=== PATIENT | female | born 1985 | race Caucasian/White ===

== ENCOUNTER 2020-08-30 19:47 | Inpatient (IN) ==
[2020-08-30] MEDS ORDERED: RINGER'S SOLUTION,LACTATED 1,000 ML IV PRN (20:37)
--- NOTE | 2020-08-30 20:37 | HP ---
Chief Complaint - Chief Complaint Date of Service: 08/30/20 Time of Service: 20:30 Chief Complaint: SROM, contractions History of Present Illness: 34 year old at 38w 1d who presents to labor and delivery with rupture of membranes, and in labor. She reports contractions. She denies vb or lof. Fetus is active. Medical History (Last Reviewed 08/30/20 @ 20:32 by Rosalva Grace MD) Anxiety Onset Date: Unknown Asthma Depression Onset Date: Unknown Endometriosis Onset Date: Unknown Surgical History: Surgical History (Last Reviewed 08/30/20 @ 20:32 by Rosalva Grace MD) H/O LEEP Onset Date: ~2004 H/O repair of rotator cuff Onset Date: Unknown History of cryosurgery Onset Date: ~2007 Previous section Family History: Family History (Last Reviewed 08/30/20 @ 20:32 by Rosalva Grace MD) Father Alive and well Mother Diabetes DMII COPD (chronic obstructive pulmonary disease) Hypothyroidism Other No pertinent family history Social History: (Last Updated 08/27/20 @ 15:15 by Rosalva Grace MD) Social History: Marital status: Single household members: children current occupational status: unemployed Highest level of school completed/degree received: some college, no degree Service: No Tobacco: Smoking Status: Current every day smoker tobacco type: cigarettes Smoking cigarettes per day: 3 Alcohol: alcohol intake: former details: none since +UPT Substance Use: substance use type: marijuana details: stopped with +UPT Dietary Habits: caffeine: No Review Of Systems (GEN) - Review of Systems Generalized/Overall Review: Present: No Symptoms Reported EENTM: Present: No Symptoms Reported Misc: All systems neg except as marked Immunizations: IMMUNIZATION HX Immunizations Up to Date Yes History of Influenza Vaccine No Hx Pneumococcal Vaccination No Allergies/Adverse Reactions: Allergies Allergy/AdvReac Type Severity Reaction Status Date / Time No Known Allergies Allergy Verified 08/30/20 20:11 Home Medications: HOME MEDICATIONS prenat.vits,christophe,bmf-[id number] 1 tab PO DAILY 02/21/20 [Last Taken Unknown] cyclobenzaprine 10 mg tablet 10 mg PO Q8H PRN #30 tab 07/30/20 [Last Taken Unknown] breast pump See Rx Instructions .ROUTE .MEDSUPPLY #1 ea 08/13/20 [Last Taken Unknown] Ferrous Sulfate [Iron] 325 mg PO DAILY 08/21/20 [Last Taken Unknown] Exam - Exam Vital Signs: Vital Signs - Last Taken Temp 37.0 C 08/30/20 20:17 Pulse 80 08/30/20 20:17 Resp 20 08/30/20 20:17 BP 113/57 08/30/20 20:17 Pulse Ox 99 08/30/20 20:17 Constitutional: Present: Alert, Oriented x3, Cooperative, No distress ENT Exam: Present: hearing grossly normal Eye Exam: bilateral eye: normal inspection Neck: Present: normal inspection Breasts: Present: Exam deferred Respiratory: Present: lungs clear, normal breath sounds Cardiovascular/Chest: Present: regular rate, rhythm Abdomen: Present: nontender, nondistended, no rebound tenderness /Rectal: Present: Exam deferred Extremity: Present: non-tender, no calf tenderness Skin Exam: Present: normal color, warm/dry, no cyanosis Neurologic: Present: alert, normal mood/affect, oriented x 3 Appearance: Present: appropriate appearance, appropriate insight, neat, no memory impairment Eye contact: Present: cooperative, good eye contact, normal speech Thoughts: Present: normal thought pattern Assessment/Plan - Narrative Narrative: Proceed with delivery due to ruptured membranes and in labor at 38 weeks gestation - Assessment/Plan (1) Premature rupture of membranes Problem: Acute Qualifiers: PROM onset of labor timing: onset of labor within 24 hours of rupture PROM gestational age: full term Qualified Code(s): O42.02 - Full-term premature rupture of membranes, onset of labor within 24 hours of rupture (2) 38 weeks gestation of Problem: Acute (3) Request for sterilization Problem: Acute (4) History of delivery Problem: Acute (5) Rh(D) positive Problem: Acute (6) AMA (advanced maternal age) multigravida 35+ Problem: Acute Qualifiers: Trimester: third trimester Qualified Code(s): O09.523 - Supervision of elderly multigravida, third trimester (7) Normal Pap smear Problem: Acute (8) History of marijuana use Problem: Acute
[2020-08-30] MEDS ORDERED: fentaNYL CITRATE/PF 50 MCG/ML AMPUL ONE (20:56)
[2020-08-30] MEDS ORDERED: MIDAZOLAM HCL/PF 5 MG/ML VIAL ONE (20:56)
[2020-08-30] MEDS ORDERED: ONDANSETRON HCL/PF 2 MG/ML VIAL ONE (20:57)
[2020-08-30] MEDS ORDERED: BUPIVACAINE HCL/EPINEPHRINE 50 ML VIAL ONE (20:57)
[2020-08-30] MEDS ORDERED: NALOXONE HCL 0.4 MG/ML VIAL IV PRN (21:09)
[2020-08-30] MEDS ORDERED: PROCHLORPERAZINE EDISYLATE 5 MG/ML VIAL IV PRN (21:09)
[2020-08-30] MEDS ORDERED: diphenhydrAMINE HCL 50 MG/ML VIAL IV PRN (21:09)
--- NOTE | 2020-08-30 21:28 | ANES ---
Anesthesia Pre Procedure Eval Vitals/Labs: Last Vital Signs Temp 37.0 C 08/30/20 20:17 Pulse 80 08/30/20 20:17 Resp 20 08/30/20 20:17 BP 113/57 08/30/20 20:17 Pulse Ox 99 08/30/20 20:17 HOME MEDICATIONS prenat.vits,christophe,[id number] 1 tab PO DAILY 02/21/20 [Last Taken Unknown] cyclobenzaprine 10 mg tablet 10 mg PO Q8H PRN #30 tab 07/30/20 [Last Taken Unknown] breast pump See Rx Instructions .ROUTE .MEDSUPPLY #1 ea 08/13/20 [Last Taken Unknown] Ferrous Sulfate [Iron] 325 mg PO DAILY 08/21/20 [Last Taken Unknown] Allergies/Adverse Reactions: Allergies Allergy/AdvReac Type Severity Reaction Status Date / Time No Known Allergies Allergy Verified 08/30/20 20:11 - Planned Procedure Planned Procedure: Repeat C/S Medication List Reviewed:: Yes Allergies Verified: Yes Medical History (Last Reviewed 08/30/20 @ 21:27 by Samy Bobby CRNA) Anxiety Onset Date: Unknown Asthma Depression Onset Date: Unknown Endometriosis Onset Date: Unknown Surgical History (Last Reviewed 08/30/20 @ 21:27 by Samy Bobby CRNA) H/O LEEP Onset Date: ~2004 H/O repair of rotator cuff Onset Date: Unknown History of cryosurgery Onset Date: ~2007 Previous section Family History (Last Reviewed 08/30/20 @ 21:27 by Samy Bobby CRNA) Father Alive and well Mother Diabetes DMII COPD (chronic obstructive pulmonary disease) Hypothyroidism Other No pertinent family history - Family Anesthesia History Family History:: no untoward family reactions to anesthesia, no familial bleeding tendencies, no family history of clotting disorders, no family history of premature - Airway/Neck/Teeth Within Normal Limits:: Yes Teeth Condition: intact Mallampatti Score: 2 Thyromental (T-M) distance: > 6 cm Mandibulo Hyoid distance: > 3 cm - Respiratory Respiratory Physical: lungs clear Smoking Status: Current every day smoker Discussed smoking cessation including day of surgery: No Sleep Apnea currently treated: No Sleep Apnea by current assessment: No Discussed Risks/Treatment of RL: No - Cardiovascular Tolerate Activity: Good Heart Sounds: S1 & S2, Regular - Gastrointestinal NPO since: mn - Anesthesia Assessment and Plan ASA Class: PS, II, E Anesthesia Type Plan: Block - Bilateral ultrasound guided TAP blocks for postop analgesia, Spinal
[2020-08-30] MEDS ORDERED: Oxytocin/Ringers Lactate 20 UNITS/1,000 ML BAG IV ONE (22:03)
[2020-08-30] MEDS ORDERED: HYDROcodone/ACETAMINOPHEN 1 EACH TABLET PO PRN (23:09)
[2020-08-30] MEDS ORDERED: SENNOSIDES 8.6 MG TABLET PO PRN (23:09)
[2020-08-30] MEDS ORDERED: BISACODYL 10 MG SUPP.RECT RC PRN (23:09)
[2020-08-30] MEDS ORDERED: SIMETHICONE 80 MG TAB.CHEW PO PRN (23:09)
[2020-08-30] MEDS ORDERED: diphenhydrAMINE HCL 25 MG CAPSULE PO PRN (23:09)
[2020-08-30] MEDS ORDERED: ONDANSETRON HCL/PF 2 MG/ML VIAL IV PRN (23:09)
--- NOTE | 2020-08-30 23:09 | OR ---
Operative Report - Dictated Report Narrative: Date of delivery: 08/30/2020 Time of delivery: 2202 Gender: female weight: 3817 grams APGARS: 7/9 Preoperative diagnosis: IUP at 38w 1d, labor, SROM, history of prior delivery, desires sterilization Postoperative diagnosis: same, nuchal cord, foul-smelling amniotic fluid Procedure: Scar revision, repeat delivery, bilateral salpingectomy Surgeon: Dr. Grace Anesthesia: Spinal Anesthesiologist: Samy Bobby CRNA Description of the procedure: The patient was taken to the operating room where spinal anesthesia was placed. She was then prepped and draped in the lithotomy position in the standard surgical fashion. Attention was then turned to the abdomen. The area around the scar was marked in an elliptical shape. A scar revision was performed due to prior history of healing difficulties of the right side of the scar secondary to scar tissue. The incision was carried through the subcutaneous tissue. This was in the area of an usual Pfannestiel incision. The fascia was identified and incised in the midline. The fascial incision was extended sharply bilaterally. The fascia was tented up with Facundo clamps. The fascia was dissected off the underlying rectus muscles. The peritoneum was entered bluntly. A large Andrew retractor was placed in the abdomen. A uterine window was noted on the right side of the incision. The uterus was incised in a low transverse fashion. The uterine incision was extended bluntly. The membranes were ruptured and the fluid was clear. The head was delivered without difficulty and a loose umbilical cord was reduced. The rest of the infant was delivered atraumatically. The cord was clamped and cut and the was handed off to the attending pediatric staff. The placenta was delivered by expression and appeared intact. Cord blood was collected. The uterus was cleared of all clots and debris. The uterus was closed with 2 layers of 0-vicryl. The second layer was an imbricating layer. Hemostasis was adequate. Attention was then turned to the right fallopian tube. The fallopian tube was cut along the mesosalpinx all the way to the cornual region. There was bleeding at the cornual region and thus a 2-0 vicryl [id number] suture was placed for hemostasis. The same procedure was repeated on the right. Both tubes were sent for pathological analysis. The Andrew retractor was removed from the abdomen. The subfascial tissues as well as the rectus muscles were inspected for hemostasis. Hemostasis was adequate. The fascia was closed with 1-0 vicryl. The subcutaneous tissue was irrigated. The subcutaneous tissue's space was closed with 2-0 vicryl. The skin was closed with 3-0 monocryl on a James needle. A suture was placed across the left side of the incision for additional hemostasis. Evans palacio was placed over the incision. The incision was covered with a dressing. All sponge, lap, and needle counts were correct. The patient tolerated the procedure well. She was transferred to the recovery room in stable condition. EBL: 1000 mL Complications: none Specimens: cord blood, placenta, fallopian tubes
[2020-08-30 23:17] LABS: Cocaine Ur Negative (NEGATIVE); Urine Barbiturate Negative (NEGATIVE); Urine Benzodiazepines Negative (NEGATIVE); Urine Opiates Negative (NEGATIVE); Urine PCP Negative (NEGATIVE); Urine THC Negative (NEGATIVE)
--- NOTE | 2020-08-30 23:30 | ANES ---
Post Anesthesia Discharge - Transfer of Care Transfer of Care handoff given to nurse: Yes - Discharge from PACU Discharge from PACU when meets criteria: Yes - Discharge to ASU Discharge to ASU-no complications/pt stable: Yes
--- NOTE | 2020-08-30 23:31 | ANES ---
Anesthesia Procedure Note Procedure Note: ANESTHESIA PROCEDURE NOTE Date of Procedure: 08/30/2020. Time of procedure: 2304. Performed by: Samy Bobby CRNA Electromechanical Assembly Technician: None. Preprocedure diagnosis: Repeat . Post procedure diagnosis: Same. Procedure: Bilateral ultrasound-guided transversus abdominis plane block for postop analgesia. Indications: The patient is a 34-year-old female post section. Findings: See below. Details of the procedure: ChloraPrep was used on the patient's abdomen and the procedure was performed under sterile technique. The right abdominal fascial layer between the internal oblique muscle and the transversus abdominis muscles was identified under ultrasound guidance. A 21-gauge 4 inch block needle was inserted under ultrasound guidance to the target fascial plane. 15 mL's of 0.5% bupivacaine plus epinephrine 1:200,000 was injected after negative aspiration for blood. The needle was removed intact and the procedure was then repeated at the left side. No complications were noted. The images were retained in the hospital medical database. EBL: Minimal. Fluids: N/A. Specimen: N/A. Post procedure condition: The patient tolerated the procedure well. No complications were noted. Thank you for this consultation. Samy Bobby CRNA
--- NOTE | 2020-08-30 23:32 | ANES ---
Post Anesthesia Assessment - Vital Signs Vitals: Last Vital Signs Temp 36.4 C 08/30/20 23:00 Pulse 89 08/30/20 23:20 Resp 12 08/30/20 23:20 BP 126/67 08/30/20 23:20 Pulse Ox 100 08/30/20 23:20 Airway Patency: Normal - Mental Status Level Of Consciousness: Awake - Pain Level Pain Score: 10 - N/V Assessment Nausea/Vomiting Presence: None Dehydration:: No
[2020-08-30] MEDS: HYDROmorphone HCL 2 MG/ML VIAL IV PRN (23:48)
[2020-08-31] MEDS: KETOROLAC TROMETHAMINE 30 MG/ML VIAL IV PRN ×3 (01:05→13:37)
[2020-08-31] MEDS ORDERED: ceFAZolin SODIUM 1 GM VIAL IV PRN (06:00)
[2020-08-31] MEDS: HYDROcodone/ACETAMINOPHEN 1 EACH TABLET PO PRN ×2 (07:03→12:30)
[2020-08-31] MEDS: DOCUSATE SODIUM 100 MG CAPSULE PO SCH ×2 (09:06→20:31)
--- NOTE | 2020-08-31 09:11 | PN ---
Subjective - Date and Time Seen Date: 08/31/20 Time: 09:09 Subjective Narrative: Patient without complaints. Vaginal bleeding is normal Objective Objective Narrative: See vital signs - Review of Systems Generalized/Overall Review: Reports: No Symptoms Reported Misc: All systems neg except as marked - Vitals Vitals: Last Vital Signs Temp 36.6 C 08/31/20 07:00 Pulse 91 08/31/20 07:00 Resp 16 08/31/20 07:00 BP 95/49 08/31/20 07:00 Pulse Ox 99 08/31/20 07:00 - Exam Constitutional: Present: Alert, Oriented x3, Cooperative, No distress ENT Exam: Present: hearing grossly normal Neck: Present: normal inspection Breasts: Present: Exam deferred Abdomen: Present: soft, nontender, nondistended - dressing c/d/i Extremity: Present: non-tender, no calf tenderness Skin Exam: Present: normal color, warm/dry, no cyanosis Neurologic: Present: alert, normal mood/affect, oriented x 3 Appearance: Present: appropriate appearance, appropriate insight, neat, no memory impairment Eye contact: Present: cooperative, good eye contact, normal speech Thoughts: Present: normal thought pattern Cauti Physician Documentation - Urinary Catheter Management Urethral (Penaloza) Urethral Indwelling: No Date of Insertion: 08/30/20 Time of Insertion: 21:45 Assessment/Plan Plan Narrative: POD 1 s/p repeat delivery Doing well Discharge POD 3 - Problems/Diagnosis (1) Premature rupture of membranes Problem: Acute Qualifiers: PROM onset of labor timing: onset of labor within 24 hours of rupture PROM gestational age: full term Qualified Code(s): O42.02 - Full-term premature rupture of membranes, onset of labor within 24 hours of rupture (2) 38 weeks gestation of Problem: Acute (3) Request for sterilization Problem: Acute (4) History of delivery Problem: Acute (5) Rh(D) positive Problem: Acute (6) AMA (advanced maternal age) multigravida 35+ Problem: Acute Qualifiers: Trimester: third trimester Qualified Code(s): O09.523 - Supervision of elderly multigravida, third trimester (7) Normal Pap smear Problem: Acute (8) History of marijuana use Problem: Acute
[2020-08-31] MEDS: HYDROmorphone HCL 2 MG/ML VIAL IV PRN (13:55)
[2020-08-31] MEDS: oxyCODONE HCL/ACETAMINOPHEN 1 TAB TABLET PO PRN ×2 (17:40→21:37)
[2020-09-01] MEDS: oxyCODONE HCL/ACETAMINOPHEN 1 TAB TABLET PO PRN ×3 (01:51→19:43)
[2020-09-01] MEDS: IBUPROFEN 800 MG TABLET PO PRN ×3 (01:52→19:43)
--- NOTE | 2020-09-01 08:28 | PN ---
Subjective - Date and Time Seen Date: 09/01/20 Time: 08:27 Subjective Narrative: Patient without complaints. Vaginal bleeding is normal Objective Objective Narrative: See vital signs - Review of Systems Generalized/Overall Review: Reports: No Symptoms Reported Misc: All systems neg except as marked - Vitals Vitals: Last Vital Signs Temp 36.5 C 09/01/20 07:45 Pulse 91 09/01/20 07:45 Resp 16 09/01/20 07:45 BP 97/48 09/01/20 07:45 Pulse Ox 97 09/01/20 07:45 - Exam Constitutional: Present: Alert, Oriented x3, Cooperative, No distress ENT Exam: Present: hearing grossly normal Neck: Present: normal inspection Abdomen: Present: soft, nontender, nondistended - incision c/d/i Extremity: Present: non-tender, no calf tenderness Skin Exam: Present: normal color, warm/dry, no cyanosis Neurologic: Present: alert, normal mood/affect, oriented x 3 Appearance: Present: appropriate appearance, appropriate insight, neat, no memory impairment Eye contact: Present: cooperative, good eye contact, normal speech Thoughts: Present: normal thought pattern Cauti Physician Documentation - Urinary Catheter Management Urethral (Penaloza) Urethral Indwelling: No Date of Insertion: 08/30/20 Time of Insertion: 21:45 Date of Removal: 08/31/20 Time of Removal: 10:00 Assessment/Plan Plan Narrative: POD 2 s/p repeat delivery, bilateral salpingectomies Doing well Discharge tomorrow - Problems/Diagnosis (1) Premature rupture of membranes Problem: Acute Qualifiers: PROM onset of labor timing: onset of labor within 24 hours of rupture PROM gestational age: full term Qualified Code(s): O42.02 - Full-term premature rupture of membranes, onset of labor within 24 hours of rupture (2) 38 weeks gestation of Problem: Acute (3) Request for sterilization Problem: Acute (4) History of delivery Problem: Acute (5) Rh(D) positive Problem: Acute (6) AMA (advanced maternal age) multigravida 35+ Problem: Acute Qualifiers: Trimester: third trimester Qualified Code(s): O09.523 - Supervision of elderly multigravida, third trimester (7) Normal Pap smear Problem: Acute (8) History of marijuana use Problem: Acute
[2020-09-01] MEDS: DOCUSATE SODIUM 100 MG CAPSULE PO SCH ×2 (09:16→20:28)
[2020-09-02] MEDS: oxyCODONE HCL/ACETAMINOPHEN 1 TAB TABLET PO PRN ×3 (06:39→17:26)
[2020-09-02] MEDS: IBUPROFEN 800 MG TABLET PO PRN ×2 (06:39→13:41)
--- NOTE | 2020-09-02 07:01 | PN ---
Subjective - Date and Time Seen Date: 09/02/20 Time: 06:59 Subjective Narrative: Patient without complaints. Vaginal bleeding is normal Objective Objective Narrative: See vital signs - Review of Systems Generalized/Overall Review: Reports: No Symptoms Reported Misc: All systems neg except as marked - Vitals Vitals: Last Vital Signs Temp 36.6 C 09/02/20 00:57 Pulse 97 09/02/20 00:57 Resp 18 09/02/20 00:57 BP 122/56 09/02/20 00:57 Pulse Ox 100 09/02/20 00:57 - Exam Constitutional: Present: Alert, Oriented x3, Cooperative, No distress ENT Exam: Present: hearing grossly normal Neck: Present: normal inspection Abdomen: Present: soft, nontender, nondistended - incision c/d/i Extremity: Present: non-tender, no calf tenderness Skin Exam: Present: normal color, warm/dry, no cyanosis Neurologic: Present: alert, normal mood/affect, oriented x 3 Appearance: Present: appropriate appearance, appropriate insight, neat, no memory impairment Eye contact: Present: cooperative, good eye contact, normal speech Thoughts: Present: normal thought pattern Cauti Physician Documentation - Urinary Catheter Management Urethral (Penaloza) Urethral Indwelling: No Date of Insertion: 08/30/20 Time of Insertion: 21:45 Date of Removal: 08/31/20 Time of Removal: 10:00 Assessment/Plan Plan Narrative: POD 3 s/p repeat delivery Doing well Discharge today - Problems/Diagnosis (1) Premature rupture of membranes Problem: Acute Qualifiers: PROM onset of labor timing: onset of labor within 24 hours of rupture PROM gestational age: full term Qualified Code(s): O42.02 - Full-term premature rupture of membranes, onset of labor within 24 hours of rupture (2) 38 weeks gestation of Problem: Acute (3) Request for sterilization Problem: Acute (4) History of delivery Problem: Acute (5) Rh(D) positive Problem: Acute (6) AMA (advanced maternal age) multigravida 35+ Problem: Acute Qualifiers: Trimester: third trimester Qualified Code(s): O09.523 - Supervision of elderly multigravida, third trimester (7) Normal Pap smear Problem: Acute (8) History of marijuana use Problem: Acute
--- NOTE | 2020-09-02 07:04 | DS ---
OB Discharge Summary (1) Premature rupture of membranes Status: Acute Qualifiers: PROM onset of labor timing: onset of labor within 24 hours of rupture PROM gestational age: full term Qualified Code(s): O42.02 - Full-term premature rupture of membranes, onset of labor within 24 hours of rupture (2) 38 weeks gestation of Status: Acute (3) Request for sterilization Status: Acute (4) History of delivery Status: Acute (5) Rh(D) positive Status: Acute (6) AMA (advanced maternal age) multigravida 35+ Status: Acute Qualifiers: Trimester: third trimester Qualified Code(s): O09.523 - Supervision of elderly multigravida, third trimester (7) Normal Pap smear Status: Acute (8) History of marijuana use Status: Acute Delivery Date: 08/30/20 Delivery Time: 22:03 :: 3 Para:: 3 Gestational weeks:: 38 Gestational days:: 1 Intrapartum Procedures: Secondary Section, Delivery-Low T ransverse, Anesthesia - Spinal Procedures: None /OP Complications: No Complications Discharge Diagnosis: Term -Delivered - Discharge Information Date of Discharge: 09/02/20 Hospital Course: Patient presented with ruptured membranes and in labor. She was delivered via an uncomplicated repeat delivery. course was uncomplicated. Discharge Location: Home Disposition: Home self-care Condition: Good Activity on Discharge:: Activity as tolerated, Pelvic Rest Discharge Diet: General/regular food Prescriptions (Any new or edited meds): oxyCODONE HCL/ACETAMINOPHEN [Percocet 5 MG/325 MG] 1 tab PO Q4H PRN 6 Days #14 tab PRN Reason: Moderate Pain (Pain Scale 4-6) Transmission Status: Received by [facility] #[id number] Complete Home Medications List: Complete Home Medication List: prenat.vits,christophe,ppo-xvao-kjwfo 1 tab PO DAILY 02/21/20 breast pump See Rx Instructions .ROUTE .MEDSUPPLY #1 ea 08/13/20 oxyCODONE HCL/ACETAMINOPHEN [Percocet 5 MG/325 MG] 1 tab PO Q4H PRN 6 Days #14 tab 08/31/20 - Plan Discharge to:: Home Comment:: Routine Discharge Instructions Follow up in office in:: Other - 4 weeks - Information Weight (Grams): 3,817 Sex: Female Score 1 min: 7 Score 5 min: 9 Complications: None Other Complications: LGA
[2020-09-02] MEDS: DOCUSATE SODIUM 100 MG CAPSULE PO SCH (09:43)
[2020-09-02 14:55] VITALS: BP 122/61
== END 2020-09-02 17:28 | disposition home or self-care (01) | DRG 784 ==
LOC: OBCLINIC 19:47 → OB 19:55
PROVIDERS: ADMIT Obstetrics & Gynecology; ATTEND Obstetrics & Gynecology
DX: Z3A.38 38 weeks gestation of pregnancy; O99.324 Drug use complicating childbirth; O42.02 Full-term premature rupture of membranes, onset of labor within 24 hours of rupture; F12.90 Cannabis use, unspecified, uncomplicated; Z37.0 Single live birth; Z30.2 Encounter for sterilization; O34.218 Maternal care for other type scar from previous cesarean delivery; N85.8 Other specified noninflammatory disorders of uterus; Z67.90 Unspecified blood type, Rh positive